=== PATIENT | female | born 1960 | race Caucasian/White ===

== ENCOUNTER 2017-12-17 15:15 | Emergency (ER) | payer OTHER ==
[~2017-12-17] VITALS: Ht 167.6 cm; Wt 68.0 kg
[2017-12-17 16:10] LABS: ABSOLUTE NEUTROPHILS 3.6 thou/uL (1.4-8.2); BASOPHILS 0.8 % (0.0-2.0); EOSINOPHILS 3.3 % (0.0-3.0); HEMATOCRIT 29.8 % (37.0-47.0); HEMOGLOBIN 9.4 gm/dL (12.0-15.0); LYMPHOCYTES 25.2 % (24.0-44.0); MCH 24.2 pg (26.0-34.0); MCHC 31.6 g/dL (28.0-37.0); MCV 76.5 fL (80.0-100.0); MONOCYTES 8.3 % (1.0-8.0); PLATELET COUNT 267 thou/uL (150-400); POLYS 62.4 % (36.0-66.0); RDW 17.2 % (10.5-14.5); WBC 5.8 thou/uL (4.0-11.0)
[2017-12-17 16:21] LABS: CALCIUM 9.3 mg/dL (8.5-10.1); CREATININE 1.1 mg/dL (0.6-1.0); POTASSIUM 3.2 mmol/L (3.5-5.1)
[2017-12-17] MEDS ORDERED: REGLAN 10 MG TA10 MG PO (16:35)
[2017-12-17] MEDS ORDERED: PHENERGAN 25 MG25 M1 PO (17:00)
[2017-12-17 17:50] VITALS: BP 123/69
== END 2017-12-17 17:51 | disposition home or self-care (01) ==
LOC: ER 15:15
PROVIDERS: Physician Assistant
DX: E87.6 Hypokalemia (principal); R51 Headache

== ENCOUNTER 2017-12-22 12:01 | Emergency (ER) | payer OTHER ==
[~2017-12-22] VITALS: Ht 170.2 cm; Wt 69.0 kg
[~2017-12-22 12:01] MED LIST: PHENERGAN 25 MG25 M1 PO; REGLAN 10 MG TA10 MG PO
[2017-12-22 13:23] LABS: URINE BILIRUBIN NEGATIVE (Negative); URINE BLOOD 1+ (Negative); URINE CLARITY CLEAR; URINE COLOR YELLOW; URINE GLUCOSE-RANDOM* NEGATIVE (Negative); URINE KETONES NEGATIVE (Negative); URINE LEUKOCYTES-REFLEX NEGATIVE (Negative); URINE NITRITE-REFLEX NEGATIVE (Negative); URINE PROTEIN (DIPSTICK) NEGATIVE (Negative); URINE UROBILINOGEN 0.2 E.U./dl (0.2-1.0)
[2017-12-22 13:32] LABS: ABSOLUTE NEUTROPHILS 2.7 thou/uL (1.4-8.2); BASOPHILS 1.1 % (0.0-2.0); EOSINOPHILS 5.2 % (0.0-3.0); HEMOGLOBIN 10.3 gm/dL (12.0-15.0); LYMPHOCYTES 31.6 % (24.0-44.0); MCH 24.2 pg (26.0-34.0); MCHC 32.2 g/dL (28.0-37.0); MCV 75.1 fL (80.0-100.0); PLATELET COUNT 301 thou/uL (150-400); POLYS 51.1 % (36.0-66.0); RBC 4.26 mil/uL (4.20-5.00); RDW 17.1 % (10.5-14.5); WBC 5.2 thou/uL (4.0-11.0)
[2017-12-22 13:33] LABS: CASTS None Seen /LPF (None Seen); CRYSTALS None Seen /LPF (None Seen); SQUAMOUS 4-10 Moderate /LPF (0-3)
[2017-12-22 13:34] LABS: BACTERIA-REFLEX 1-9 Few /HPF (None Seen); URINE RBC 3-10 Few /HPF (0-2); URINE WBC-REFLEX 0-5 Rare /HPF (0-5)
[2017-12-22 13:39] LABS: CALCIUM 9.6 mg/dL (8.5-10.1); CREATININE 1.2 mg/dL (0.6-1.0); POTASSIUM 4.3 mmol/L (3.5-5.1)
[2017-12-22 13:46] LABS: ALBUMIN 3.7 g/dL (3.4-5.0); TOTAL BILIRUBIN 0.2 mg/dL (<0.1-1.0); TOTAL PROTEIN 7.2 g/dL (6.4-8.2)
[2017-12-22] MEDS ORDERED: PRILOSEC 20 MG20 MG PO (15:07)
[2017-12-22 15:53] VITALS: BP 124/75
== END 2017-12-22 15:54 | disposition home or self-care (01) ==
LOC: ER 12:01
PROVIDERS: Nurse Practitioner Family
DX: R10.13 Epigastric pain (principal); Z59.0 Homelessness; Z85.01 Personal history of malignant neoplasm of esophagus

== ENCOUNTER 2018-05-29 10:13 | Emergency (ER) | payer OTHER ==
[~2018-05-29] VITALS: Ht 167.6 cm; Wt 63.5 kg
[~2018-05-29 10:13] MED LIST changes: +PRILOSEC 20 MG20 MG PO
[2018-05-29 10:58] LABS: ABSOLUTE NEUTROPHILS 4.3 thou/uL (1.4-8.2); BASOPHILS 0.4 % (0.0-2.0); EOSINOPHILS 3.9 % (0.0-3.0); HEMATOCRIT 38.2 % (37.0-47.0); HEMOGLOBIN 12.5 gm/dL (12.0-15.0); LYMPHOCYTES 17.9 % (24.0-44.0); MCH 24.9 pg (26.0-34.0); MCHC 32.6 g/dL (28.0-37.0); MCV 76.2 fL (80.0-100.0); MONOCYTES 7.3 % (1.0-8.0); PLATELET COUNT 358 thou/uL (150-400); POLYS 70.5 % (36.0-66.0); RBC 5.01 mil/uL (4.20-5.00); RDW 19.2 % (10.5-14.5); WBC 6.1 thou/uL (4.0-11.0)
[2018-05-29 11:10] LABS: ANION GAP 16 mmol/L (7-16); BUN 19 mg/dL (7-18); CHLORIDE 104 mmol/L (98-107); CO2 20 mmol/L (21-32); CREATININE 1.6 mg/dL (0.6-1.0); POTASSIUM 3.7 mmol/L (3.5-5.1); SODIUM 140 mmol/L (136-145)
[2018-05-29 11:11] LABS: APTT 26.5 Seconds (24.5-32.8); GLUCOSE 125 mg/dL (74-106); PROTIME 10.1 Seconds (9.3-11.4)
[2018-05-29 11:17] LABS: ALBUMIN 4.3 g/dL (3.4-5.0); DIRECT BILIRUBIN < 0.1 mg/dL (<0.1-0.3); LIPASE 100 U/L (73-393); SGOT 30 U/L (15-37); SGPT 43 U/L (30-65); TOTAL BILIRUBIN 0.3 mg/dL (<0.1-1.0); TOTAL PROTEIN 8.5 g/dL (6.4-8.2)
[2018-05-29] MEDS ORDERED: CLONAZEPAM 1 MG1 M1 PO (11:21)
[2018-05-29] MEDS ORDERED: FLEXERIL PO (11:21)
[2018-05-29 11:44] LABS: ANISOCYTOSIS 1+; PLATELET ESTIMATE NORMAL
== END 2018-05-29 12:58 | disposition home or self-care (01) ==
LOC: ER 10:13
PROVIDERS: Nurse Practitioner
DX: R11.2 Nausea with vomiting, unspecified (principal); R19.7 Diarrhea, unspecified; E86.0 Dehydration

== ENCOUNTER 2018-06-12 22:48 | Inpatient (IN) | payer OTHER ==
[~2018-06-12] VITALS: Ht 167.6 cm; Wt 67.6 kg
--- NOTE | ~2018-06-12 | EKG ---
[address] [place] [address] ELECTROCARDIOGRAM REPORT Name: STEPHY MINAYA Room #: 212-P ADM IN M.R.#: [id number] Admission: 06/13/18 Attend Phys: Herber Goldstein MD Discharge: Date of : 64 Report #: [id number] THIS REPORT FOR: //name// [facility] ED Test Date: 2018-06-12 Test Time: 23:27:06 Pat Name: STEPHY MINAYA Department: Room: 212 Gender: F Cv Tech: isrrael : 1960 Requested By: Ioana Moy Order Number: [id number] MD: Yannick Stallings Measurements Intervals [place] Rate: 82 P: 71 OR: 149 QRS: 60 QRSD: 106 T: 50 QT: 403 QTc: 471 Interpretive Statements Sinus rhythm RSR' in V1 or V2, probably normal variant No previous ECG available for comparison Electronically Signed On 06-13-2018 8:47:03 [employer] by Yannick Stallings [email or web address] <ELECTRONICALLY SIGNED> By: Yannick Stallings MD, [facility] 06/13/18 0847 2327 232 Yannick Stallings MD, FACC /EPI
--- NOTE | ~2018-06-12 | EKG ---
[address] [place] [address] ELECTROCARDIOGRAM REPORT Name: STEPHY MINAYA Room #: 212-P ADM IN M.R.#: [id number] Admission: 06/13/18 Attend Phys: Herber Goldstein MD Discharge: Date of : 64 Report #: [id number] THIS REPORT FOR: //name// [facility] Test Date: 2018-06-13 Test Time: 07:38:46 Pat Name: STEPHY MINAYA Department: Room: [facility] Gender: F Insurance Verifier: MICHELE : 1960 Requested By: Gela Rao Order Number: [id number] MD: Yannick Stallings Measurements Intervals [place] Rate: 77 P: 72 CT: 148 QRS: 53 QRSD: 103 T: 47 QT: 422 QTc: 478 Interpretive Statements Sinus rhythm RSR' in V1 or V2, probably normal variant No previous ECG available for comparison Electronically Signed On 06-13-2018 8:49:37 [employer] by Yannick Stallings [email or web address] <ELECTRONICALLY SIGNED> By: Yannick Stlalings MD, [facility] 06/13/18 0849 0738 0738 Yannick Stallings MD, FACC /EPI
--- NOTE | ~2018-06-12 | EXE ---
[facility] [place] [address] STRESS ECHOCARDIOGRAM Name: STEPHY MINAYA Room #: 212-P ADM IN M.R.#: [id number] Admission: 06/13/18 Attend Phys: Herber Goldstein MD Discharge: Date of : 64 Date of Service: 06/13/18 1146 Report #: [id number] THIS REPORT FOR: //name// APPROVED REPORT Study performed: 06/13/2018 09:24:06 Exam: Stress Echocardiogram Indication: Chest Pain, Nausea, Dyspnea Patient Location: In-Patient Stress Nurse: Theresa Isidro RN Room #: 212 Status: routine Ht: 5 ft 6 in HR: 72 bpm BP: 146/80 mmHg Rhythm: NSR Medical History Medical History: Smoking Procedure The patient underwent an Exercise Stress Test using the Blair Protocol. Blood pressure, heart rate, and EKG were monitored. An Echocardiogram was performed by medical technician in four stages in quad fashion. At peak stress, four selected images were obtained and placed side by side with resting images for comparison. Stress Test Details Stress Test: Exercise stress testing was performed using a Blair protocol. HR Resting HR: 72 bpm Max Heart Rate (APMHR): 165 bpm Max HR Achieved: 150 bpm Target HR (85% APMHR): 140 bpm % of APMHR: 90 Recovery HR: 96 bpm HR response to stress: Normal HR response to stress BP Resting BP: 146/80 mmHg Max BP: 160/70 mmHg Recovery BP: 132/70 mmHg BP response to stress: Normal blood pressure response to stress. ECG [facility] [address] [place] [address] STRESS ECHOCARDIOGRAM Name: STEPHY MINAYA Room #: 212-P [facility] IN M.R.#: [id number] Admission: 06/13/18 Attend Phys: Herber Goldstein MD Discharge: Date of : 64 Date of Service: 06/13/18 1146 Report #: [id number] Resting ECG: Sinus Rhythm Stress ECG: Sinus Rhythm ST Change: Normal Maximum ST Deviation: 0 mm Arrhythmia: Occasional PVC's Recovery ECG: Sinus Rhythm Recovery ST Change: Normal Recovery ST Deviation: 0 mm Recovery Arrhythmia: None Clinical Reason for Termination: Maximal effort Exercise duration: 9 min 08 sec Highest Stage Achieved: Stage 3: 3.4 mph at 14% grade. Exercise capacity: 10.10 METs Overall Exercise Capacity for Age: Normal Angina Score: None Stress ECG Conclusion ECG: Non-ischemic Clinical: Non-ischemic Montgomery Treadmill Score is 9.0 which is Low risk. Pre-Stress Echo The resting Echocardiogram showed normal left ventricular contractility with an estimated Ejection Fraction of about >55%. Normal wall motion in all segments on baseline images. Post-Stress Echo The stress Echocardiogram showed normal left ventricular contractility with an estimated Ejection Fraction of about 60-65%. Normal augmentation of wall motion in all segments on post stress images. Clinical No clinical or ECG evidence for ischemia. Conclusion Clinical Response: Non-ischemic Exercise Capacity: Average Stress ECG Response: Non-ischemic Stress Echo Images: Non-ischemic The left ventricle is normal in size and wall thickness in both the rest and stress images. Normal stress echocardiogram with maximal exercise stress. [facility] [address] [place] [address] STRESS ECHOCARDIOGRAM Name: STEPHY MINAYA Room #: 212-P [facility] IN M.R.#: [id number] Admission: 06/13/18 Attend Phys: Herber Goldstein MD Discharge: Date of : 64 Date of Service: 06/13/18 1146 Report #: [id number] Other Information Study Quality: Good <Conclusion> The left ventricle is normal in size and wall thickness in both the rest and stress images. Normal stress echocardiogram with maximal exercise stress. <ELECTRONICALLY SIGNED> By: Yannick Stallings MD, FACC 06/13/18 114 45 45 Yannick Stallings MD, FACC /INF
[~2018-06-12 22:48] MED LIST changes: +CLONAZEPAM 1 MG1 M1 PO; +FLEXERIL PO
[2018-06-12 22:57] VITALS: BP 195/60
[2018-06-12 23:11] LABS: ABSOLUTE NEUTROPHILS 4.9 thou/uL (1.4-8.2); BASOPHILS 0.8 % (0.0-2.0); EOSINOPHILS 6.6 % (0.0-3.0); HEMATOCRIT 32.8 % (37.0-47.0); HEMOGLOBIN 10.6 gm/dL (12.0-15.0); LYMPHOCYTES 22.8 % (24.0-44.0); MCH 24.4 pg (26.0-34.0); MCHC 32.3 g/dL (28.0-37.0); MCV 75.7 fL (80.0-100.0); MONOCYTES 8.7 % (1.0-8.0); PLATELET COUNT 386 thou/uL (150-400); POLYS 61.1 % (36.0-66.0); RBC 4.34 mil/uL (4.20-5.00)
[2018-06-12 23:27] LABS: ALBUMIN 3.9 g/dL (3.4-5.0); BUN 22 mg/dL (7-18); CALCIUM 9.5 mg/dL (8.5-10.1); CO2 24 mmol/L (21-32); CREATININE 1.1 mg/dL (0.6-1.0); GLUCOSE 106 mg/dL (74-106); SGOT 14 U/L (15-37); SGPT 17 U/L (30-65); TOTAL BILIRUBIN 0.2 mg/dL (<0.1-1.0); TOTAL PROTEIN 7.3 g/dL (6.4-8.2); TROPONIN-I <0.06 ng/mL (<0.06)
[2018-06-12 23:32] LABS: ANION GAP 8 mmol/L (7-16); CHLORIDE 105 mmol/L (98-107); POTASSIUM 3.6 mmol/L (3.5-5.1); SODIUM 137 mmol/L (136-145)
[2018-06-13] VITALS (10 sets, daily range): BP systolic 130–153; BP diastolic 66–82
[2018-06-13 05:22] LABS: ANION GAP 10 mmol/L (7-16); BUN 19 mg/dL (7-18); CALCIUM 8.3 mg/dL (8.5-10.1); CHLORIDE 108 mmol/L (98-107); CHOLESTEROL 157 mg/dL (<200); CO2 23 mmol/L (21-32); GLUCOSE 101 mg/dL (74-106); HDL CHOLESTEROL 50 mg/dL (>40); LDL CHOLESTEROL 92 mg/dL (<100); POTASSIUM 3.6 mmol/L (3.5-5.1); SODIUM 141 mmol/L (136-145); TC:HDL 3.1 Ratio (Not establshd); TRIGLYCERIDE 78 mg/dL (<150); TROPONIN-I <0.06 ng/mL (<0.06); VLDL 16 mg/dL (<40)
[2018-06-13 05:25] LABS: SERUM ASSESSMENT Clear
[2018-06-14 05:07] LABS: GLYCOHEMOGLOBIN (HGB A1C) 5.4 % (4.8-5.6)
== END 2018-06-13 18:00 | disposition home or self-care (01) | DRG 313 ==
LOC: ER 22:48 → EROBS 06-13 01:32 → 2N 06-13 02:31
PROVIDERS: Nurse Practitioner Family; Physician Assistant
DX: R07.89 Other chest pain (principal); F43.10 Post-traumatic stress disorder, unspecified; F31.9 Bipolar disorder, unspecified; F41.0 Panic disorder [episodic paroxysmal anxiety]; K21.9 Gastro-esophageal reflux disease without esophagitis; F17.210 Nicotine dependence, cigarettes, uncomplicated; Z98.891 History of uterine scar from previous surgery; Z59.0 Homelessness; Z85.01 Personal history of malignant neoplasm of esophagus; Z90.722 Acquired absence of ovaries, bilateral; Z82.49 Family history of ischemic heart disease and other diseases of the circulatory system; Z82.3 Family history of stroke; Z83.71 Family history of colonic polyps; Z71.6 Tobacco abuse counseling
CPT/HCPCS: 10081

== ENCOUNTER 2018-12-10 07:52 | Emergency (ER) | payer OTHER ==
[~2018-12-10] VITALS: Ht 167.6 cm; Wt 66.2 kg
[2018-12-10 08:09] LABS: URINE BILIRUBIN NEGATIVE (Negative); URINE BLOOD 3+ (Negative); URINE CLARITY SL CLOUDY; URINE COLOR YELLOW; URINE GLUCOSE-RANDOM* NEGATIVE (Negative); URINE KETONES NEGATIVE (Negative); URINE NITRITE-REFLEX NEGATIVE (Negative); URINE PROTEIN (DIPSTICK) NEGATIVE (Negative); URINE SPECIFIC GRAVITY 1.025 (1.005-1.035); URINE UROBILINOGEN 0.2 E.U./dl (0.2-1.0)
[2018-12-10 08:13] LABS: URINE LEUKOCYTES-REFLEX 2+ (Negative)
[2018-12-10 08:29] LABS: CASTS None Seen /LPF (None Seen); MUCUS 0-3 Light strn/LPF (None Seen); SQUAMOUS >10 Many /LPF (0-3)
[2018-12-10 08:30] LABS: BACTERIA-REFLEX 1-9 Few /HPF (None Seen); CRYSTALS None Seen /LPF (None Seen); URINE RBC >20 Many /HPF (0-2); URINE WBC-REFLEX >25 Many /HPF (0-5)
[2018-12-10 08:49] LABS: AMP/METHAMP Negative (Negative); BARBITURATES Negative (Negative); BENZODIAZEPINES Negative (Negative); COCAINE Negative (Negative); METHADONE Negative (Negative); OPIATES Negative (Negative); PCP Negative (Negative)
[2018-12-10 08:54] LABS: BASOPHILS 1.2 % (0.0-2.0); EOSINOPHILS 9.1 % (0.0-3.0); HEMATOCRIT 33.1 % (37.0-47.0); HEMOGLOBIN 10.4 gm/dL (12.0-15.0); LYMPHOCYTES 24.3 % (24.0-44.0); MCH 23.8 pg (26.0-34.0); MCHC 31.6 g/dL (28.0-37.0); MCV 75.3 fL (80.0-100.0); MONOCYTES 6.9 % (1.0-8.0); POLYS 58.5 % (36.0-66.0); RBC 4.39 mil/uL (4.20-5.00); RDW 22.8 % (10.5-14.5); WBC 9.3 thou/uL (4.0-11.0)
[2018-12-10 09:06] LABS: ANION GAP 12 mmol/L (7-16); BUN 25 mg/dL (7-18); CALCIUM 9.3 mg/dL (8.5-10.1); CHLORIDE 107 mmol/L (98-107); CO2 22 mmol/L (21-32); CREATININE 0.9 mg/dL (0.6-1.0); GLUCOSE 82 mg/dL (74-106); POTASSIUM 4.7 mmol/L (3.5-5.1); SODIUM 141 mmol/L (136-145)
[2018-12-10 09:13] LABS: ALBUMIN 3.7 g/dL (3.4-5.0); DIRECT BILIRUBIN < 0.1 mg/dL (<0.1-0.3); LIPASE 247 U/L (73-393); SGOT 29 U/L (15-37); SGPT 23 U/L (30-65); TOTAL BILIRUBIN 0.3 mg/dL (<0.1-1.0); TOTAL PROTEIN 7.2 g/dL (6.4-8.2)
[2018-12-10 09:30] LABS: ANISOCYTOSIS 2+; MICROCYTES 2+; PLATELET COUNT 351 thou/uL (150-400); PLATELET ESTIMATE NORMAL
[2018-12-10] MEDS ORDERED: IBUPROFEN 600600 M1 PO (10:23)
[2018-12-10] MEDS ORDERED: ULTRAM 50MG TAB50 MG PO (10:23)
[2018-12-10] MEDS ORDERED: NORFLEX100 MG PO (10:23)
[2018-12-10 10:43] LABS: URINE BILIRUBIN NEGATIVE (Negative); URINE BLOOD 3+ (Negative); URINE CLARITY CLEAR; URINE COLOR YELLOW; URINE GLUCOSE-RANDOM* NEGATIVE (Negative); URINE KETONES NEGATIVE (Negative); URINE LEUKOCYTES-REFLEX NEGATIVE (Negative); URINE NITRITE-REFLEX NEGATIVE (Negative); URINE PROTEIN (DIPSTICK) NEGATIVE (Negative); URINE UROBILINOGEN 0.2 E.U./dl (0.2-1.0)
[2018-12-10 11:13] LABS: CASTS None Seen /LPF (None Seen); SQUAMOUS 0-3 Few /LPF (0-3); URINE RBC 0-2 Rare /HPF (0-2)
[2018-12-10 11:14] LABS: BACTERIA-REFLEX None Seen /HPF (None Seen); CRYSTALS None Seen /LPF (None Seen); URINE WBC-REFLEX None Seen /HPF (0-5)
[2018-12-10] MEDS ORDERED: NORCO 5-325 TA1 EACH PO (11:42)
[2018-12-10] MEDS ORDERED: SENNA-DOCUSATE1 EAC1 PO (11:42)
[2018-12-10 12:44] VITALS: BP 152/95
[2018-12-10] MEDS ORDERED: PHENERGAN 25 MG25 M1 PO (12:44)
== END 2018-12-10 12:46 | disposition home or self-care (01) ==
LOC: ER 07:52
PROVIDERS: Emergency Medicine
DX: R10.9 Unspecified abdominal pain (principal); Z98.51 Tubal ligation status; Z98.890 Other specified postprocedural states; Z85.01 Personal history of malignant neoplasm of esophagus; Z87.442 Personal history of urinary calculi

== ENCOUNTER 2018-12-27 17:09 | Emergency (ER) | payer OTHER ==
[~2018-12-27] VITALS: Ht 167.6 cm; Wt 59.9 kg
[~2018-12-27 17:09] MED LIST changes: +IBUPROFEN 600600 M1 PO; +NORCO 5-325 TA1 EACH PO; +NORFLEX100 MG PO; +SENNA-DOCUSATE1 EAC1 PO; +ULTRAM 50MG TAB50 MG PO
[2018-12-27 17:37] LABS: ABSOLUTE NEUTROPHILS 3.3 thou/uL (1.4-8.2); BASOPHILS 0.8 % (0.0-2.0); EOSINOPHILS 8.2 % (0.0-3.0); HEMOGLOBIN 12.3 gm/dL (12.0-15.0); MCH 24.2 pg (26.0-34.0); MCHC 32.3 g/dL (28.0-37.0); MCV 74.7 fL (80.0-100.0); MONOCYTES 7.3 % (1.0-8.0); PLATELET COUNT 332 thou/uL (150-400); POLYS 53.7 % (36.0-66.0); RBC 5.09 mil/uL (4.20-5.00); WBC 6.2 thou/uL (4.0-11.0)
[2018-12-27 17:45] LABS: CALCIUM 9.6 mg/dL (8.5-10.1); CREATININE 1.1 mg/dL (0.6-1.0); POTASSIUM 4.2 mmol/L (3.5-5.1)
[2018-12-27 17:51] LABS: TOTAL BILIRUBIN 0.3 mg/dL (<0.1-1.0); TOTAL PROTEIN 7.9 g/dL (6.4-8.2)
[2018-12-27 18:05] LABS: URINE BILIRUBIN NEGATIVE (Negative); URINE BLOOD TRACE (Negative); URINE CLARITY CLEAR; URINE COLOR YELLOW; URINE GLUCOSE-RANDOM* NEGATIVE (Negative); URINE KETONES NEGATIVE (Negative); URINE LEUKOCYTES-REFLEX TRACE (Negative); URINE NITRITE-REFLEX NEGATIVE (Negative); URINE PROTEIN (DIPSTICK) NEGATIVE (Negative); URINE SPECIFIC GRAVITY 1.025 (1.005-1.035); URINE UROBILINOGEN 0.2 E.U./dl (0.2-1.0)
[2018-12-27] MEDS ORDERED: NORCO 5-325 TA1 EAC1 PO (20:00)
[2018-12-27 20:21] VITALS: BP 157/90
== END 2018-12-27 20:22 | disposition home or self-care (01) ==
LOC: ER 17:09
PROVIDERS: Emergency Medicine
DX: R10.31 Right lower quadrant pain (principal); F31.9 Bipolar disorder, unspecified; F41.0 Panic disorder [episodic paroxysmal anxiety]; F17.210 Nicotine dependence, cigarettes, uncomplicated; Z98.890 Other specified postprocedural states; Z85.01 Personal history of malignant neoplasm of esophagus

== ENCOUNTER 2019-01-18 00:46 | Emergency (ER) | payer OTHER ==
[~2019-01-18] VITALS: Ht 167.6 cm; Wt 59.9 kg
[~2019-01-18 00:46] MED LIST changes: +NORCO 5-325 TA1 EAC1 PO
[2019-01-18] MEDS ORDERED: KLONOPIN1 MG PO (01:04)
[2019-01-18 01:43] LABS: URINE BILIRUBIN NEGATIVE (Negative); URINE BLOOD TRACE (Negative); URINE CLARITY CLEAR; URINE COLOR YELLOW; URINE GLUCOSE-RANDOM* NEGATIVE (Negative); URINE KETONES NEGATIVE (Negative); URINE NITRITE-REFLEX NEGATIVE (Negative); URINE PROTEIN (DIPSTICK) TRACE (Negative); URINE SPECIFIC GRAVITY >= 1.030 (1.005-1.035); URINE UROBILINOGEN 0.2 E.U./dl (0.2-1.0)
[2019-01-18 01:45] LABS: URINE LEUKOCYTES-REFLEX 1+ (Negative)
[2019-01-18 01:47] LABS: ABSOLUTE NEUTROPHILS 2.5 thou/uL (1.4-8.2); BASOPHILS 0.7 % (0.0-2.0); EOSINOPHILS 4.8 % (0.0-3.0); HEMATOCRIT 31.6 % (37.0-47.0); HEMOGLOBIN 10.3 gm/dL (12.0-15.0); LYMPHOCYTES 36.9 % (24.0-44.0); MCH 24.2 pg (26.0-34.0); MCHC 32.7 g/dL (28.0-37.0); MCV 74.2 fL (80.0-100.0); MONOCYTES 9.5 % (1.0-8.0); PLATELET COUNT 325 thou/uL (150-400); POLYS 48.1 % (36.0-66.0); RBC 4.26 mil/uL (4.20-5.00); RDW 19.7 % (10.5-14.5); WBC 5.3 thou/uL (4.0-11.0)
[2019-01-18 01:55] LABS: SQUAMOUS 4-10 Moderate /LPF (0-3); URINE RBC 0-2 Rare /HPF (0-2)
[2019-01-18 01:56] LABS: ANION GAP 10 mmol/L (7-16); BUN 26 mg/dL (7-18); CALCIUM 9.1 mg/dL (8.5-10.1); CHLORIDE 108 mmol/L (98-107); CO2 25 mmol/L (21-32); CREATININE 1.1 mg/dL (0.6-1.0); GLUCOSE 101 mg/dL (74-106); POTASSIUM 3.9 mmol/L (3.5-5.1); SODIUM 143 mmol/L (136-145)
[2019-01-18 01:56] LABS: CALCIUM OXALATE 4-10 Moderate /LPF (None Seen); CASTS None Seen /LPF (None Seen); MUCUS 4-6 Moderate strn/LPF (None Seen)
[2019-01-18 02:07] LABS: ALBUMIN 3.4 g/dL (3.4-5.0); MAGNESIUM 1.9 mg/dL (1.8-2.4); SGOT 17 U/L (15-37); SGPT 18 U/L (30-65); TOTAL BILIRUBIN 0.2 mg/dL (<0.1-1.0); TOTAL PROTEIN 6.6 g/dL (6.4-8.2); TROPONIN-I <0.06 ng/mL (<0.06)
[2019-01-18] MEDS ORDERED: ATIVAN0.5 MG PO (02:33)
[2019-01-18] MEDS ORDERED: KEFLEX500 M1 PO (02:33)
[2019-01-18 02:43] VITALS: BP 128/77
--- NOTE | 2019-01-18 07:59 | EKG ---
[place] [address] [facility] [place] [address] ELECTROCARDIOGRAM REPORT Name: STEPHY MINAYA Room #: DEP KATHE Starr#: [id number] ������������������ Admission: 01/18/19 ������������������ Attend Phys: Discharge: 01/18/19 ������������������ Date of : 64 Report #: [id number] ����������������������������������������������������������������� [id number] THIS REPORT FOR: //name// [facility] ED Test Date: 2019-01-18 Test Time: 01:33:13 Pat Name: STEPHY MINAYA Department: Room: Gender: F Manager [employer]: MATILDE : 1960 Requested By: Clayton Morales Order Number: [id number] MD: Yannick Stallings Measurements Intervals [place] Rate: 77 P: 63 MA: 142 QRS: 48 QRSD: 107 T: 48 QT: 397 QTc: 450 Interpretive Statements Sinus rhythm Right ventricular conduction delay Compared to ECG 06/13/2018 07:38:46 No significant changes Electronically Signed On 01-18-2019 7:59:47 CDT by Yannick Stallings [email or web address] ��������������������������������������������� <ELECTRONICALLY SIGNED> ���������������������������������������� By: Yannick Stallings MD, [facility] ��������������������������������������������� 01/18/19 0759 0133 0133 Yannick Stallings MD, FACC /EPI
== END 2019-01-18 02:53 | disposition home or self-care (01) ==
LOC: ER 00:46
PROVIDERS: Emergency Medicine
DX: G25.81 Restless legs syndrome (principal); D64.9 Anemia, unspecified; N39.0 Urinary tract infection, site not specified; C15.9 Malignant neoplasm of esophagus, unspecified; F17.210 Nicotine dependence, cigarettes, uncomplicated; F31.9 Bipolar disorder, unspecified; F41.0 Panic disorder [episodic paroxysmal anxiety]; Z98.890 Other specified postprocedural states

== ENCOUNTER 2019-08-16 11:53 | Emergency (ER) | payer OTHER ==
[~2019-08-16] VITALS: Ht 167.6 cm; Wt 65.8 kg
[~2019-08-16 11:53] MED LIST changes: +ATIVAN0.5 MG PO; +KEFLEX500 M1 PO; +KLONOPIN1 MG PO
[2019-08-16 11:54] VITALS: BP 152/97
[2019-08-16] MEDS ORDERED: AMOXICILLIN 50500 MG PO ×2 (12:13→12:26)
[2019-08-16] MEDS ORDERED: NAPROSYN500 MG PO ×2 (12:13→12:26)
== END 2019-08-16 12:39 | disposition home or self-care (01) ==
LOC: ER 11:53
DX: K02.9 Dental caries, unspecified (principal); F31.9 Bipolar disorder, unspecified; F17.210 Nicotine dependence, cigarettes, uncomplicated; Z85.01 Personal history of malignant neoplasm of esophagus

== ENCOUNTER 2020-01-21 04:11 | Emergency (ER) | payer OTHER ==
[~2020-01-21] VITALS: Ht 170.2 cm; Wt 69.0 kg
[~2020-01-21 04:11] MED LIST changes: +AMOXICILLIN 50500 MG PO; +NAPROSYN500 MG PO
[2020-01-21 05:39] LABS: CALCIUM 9.1 mg/dL (8.5-10.1); CREATININE 1.1 mg/dL (0.6-1.0); POTASSIUM 4.6 mmol/L (3.5-5.1)
[2020-01-21 06:39] LABS: ABSOLUTE NEUTROPHILS 2.5 thou/uL (1.4-8.2); BASOPHILS 0.6 % (0.0-2.0); EOSINOPHILS 3.7 % (0.0-3.0); HEMATOCRIT 37.6 % (37.0-47.0); HEMOGLOBIN 12.6 gm/dL (12.0-15.0); LYMPHOCYTES 32.8 % (24.0-44.0); MCH 31.5 pg (26.0-34.0); MCHC 33.6 g/dL (28.0-37.0); MCV 93.9 fL (80.0-100.0); PLATELET COUNT 216 thou/uL (150-400); POLYS 53.9 % (36.0-66.0); WBC 4.6 thou/uL (4.0-11.0)
[2020-01-21 07:15] VITALS: BP 145/85
[2020-01-21] MEDS ORDERED: IBUPROFEN 600600 M1 PO (07:29)
[2020-01-21] MEDS ORDERED: ZOFRAN ODT4 MG PO (07:29)
--- NOTE | 2020-01-21 08:14 | EKG ---
[facility] [place] [address] ELECTROCARDIOGRAM REPORT Name: STEPHY MINAYA Room #: [facility]..#: [id number] Admission: 01/21/20 Attend Phys: Discharge: Date of : 64 Report #: [id number] THIS REPORT FOR: cc: Bonilla Moy MS, Gary MS Lundgren,Yannick Gan MD [facility] ~ THIS REPORT FOR: //name// [facility] ED Test Date: 2020-01-21 Test Time: 05:16:48 Pat Name: STEPHY MINAYA Department: Room: Gender: F [employer] Sorting Supervisor: robson : 1960 Requested By: Joe Zaman Order Number: [id number] MD: Yannick Stalilngs Measurements Intervals [place] Rate: 77 P: 58 [place]: 156 QRS: 45 QRSD: 94 T: 37 QT: 400 QTc: 453 Interpretive Statements Sinus rhythm with occasional premature ventricular complexes Probable left atrial enlargement RSR' in V1 or V2, probably normal variant Compared to ECG 01/18/2019 01:33:13 Premature ventricular complexes are now present Electronically Signed On 01-21-2020 8:13:49 CDT by Yannick Stallings [email or web address] <ELECTRONICALLY SIGNED> By: Yannick Stallings MD, FACC 01/21/20 0813 5 5 Yannick Stallings MD, [facility] /EPI
[2020-01-21] MEDS ORDERED: ALPRAZOLAM1 MG PO (09:21)
[2020-01-21] MEDS ORDERED: RESTORIL30 MG PO (09:22)
== END 2020-01-21 08:05 | disposition home or self-care (01) ==
LOC: ER 04:11
PROVIDERS: Emergency Medicine
DX: G45.3 Amaurosis fugax (principal); F17.210 Nicotine dependence, cigarettes, uncomplicated; Z79.2 Long term (current) use of antibiotics; Z79.899 Other long term (current) drug therapy

== ENCOUNTER 2020-01-21 08:43 | Inpatient (IN) | payer OTHER ==
[~2020-01-21] VITALS: Ht 170.2 cm; Wt 68.9 kg
--- NOTE | ~2020-01-21 | HC ---
[facility] [place] [address] CONSULTATION Name: STEPHY MINAYA Room #: 216-P [facility] IN M.R.#: [id number] Admission: 01/21/20 Attend Phys: Tres Gonzalez MD Discharge: 01/21/20 Date of : 64 Report #: [id number] THIS REPORT FOR: cc: Bonilla Moy MS,Bonilla [place],Navi Esteban MD ~ CC: Bonilla Gonzalez DATE OF SERVICE: 01/21/2020 HISTORY OF PRESENT ILLNESS: This is a 59-year-old female patient who was evaluated by me because she said she started having episodes of loss of vision in the right eye, which started about 2 weeks ago. This episode will last just about a second. The last episode lasted about a minute. Spontaneously, they are not associated with any headache. She was in the hospital Emergency Room recently and she left [place] for these episodes. During that time, they did a CTA of the head and neck, which was basically unremarkable. REVIEW OF SYSTEMS: Positive for the fact that she has lost her job recently. She has other problems like dental pain. She says she is in the beginning stages of esophageal carcinoma. She has been admitted to this hospital what looks like posttraumatic stress disorder and panic attack. She denies any prior history of stroke. A 14-point review of system was otherwise noncontributory. PAST MEDICAL HISTORY: Negative for stroke. FAMILY HISTORY: Positive for strokes. SOCIAL HISTORY: She smokes. PHYSICAL EXAMINATION: She is alert, responsive, able to follow simple and complex command. Her speech looks to me intact, but she does not feel her speech is very good. Cranial nerve examinations appear mostly noncontributory. I could not have a good look at the patient's fundus. Strength, sensation, reflexes are difficult to check. She feels weak on the right side. She does not give a good effort. Position sense appeared to be intact. Cardiac examination is unremarkable. Blood pressure is 139/77, respirations 14, pulse is 75. She is moderately built individual. LABORATORY DATA: White count is 4.6. GFR is 51. Last TSH was normal. IMPRESSION: Difficult to tell in this patient. Her CT angio is totally unremarkable. Because of that other etiology except for amaurosis fugax need to be considered. She needs a full ophthalmology examination. I will order a sed rate. I will order an MRI also. Stress may be playing a role in this patient's [facility] [address] [place] [address] CONSULTATION Name: STEPHY MINAYA Room #: 216-P DIS IN M.R.#: [id number] Admission: 01/21/20 Attend Phys: Tres Gonzalez MD Discharge: 01/21/20 Date of : 64 Report #: [id number]. RECOMMENDATIONS: 1. I would recommend Ophthalmology consult. I talked to Dr. Gonzalez. I do not know if any account administrator comes here or not, but he is going to find out and see if that consult can be arranged and that is what my recommendation is. 2. I will get an MRI done. They told me MRI may not be available and let the patient know but we will see whenever it can be done. 3. I will order a sed rate. 4. We will await other workup, especially ophthalmology workup to see if there is any ophthalmology pathology. As mentioned above, stress also may be playing a role, but we will consider that. Thank you very much for allowing me to share in the management of this patient and we will follow this patient along with you. By: 1025 1153 Navi Beach MD /nt
[~2020-01-21 08:43] MED LIST changes: +ZOFRAN ODT4 MG PO
[2020-01-21 09:00] VITALS: BP 139/78
[2020-01-21] MEDS ORDERED: ALPRAZOLAM1 MG PO (09:21)
[2020-01-21] MEDS ORDERED: RESTORIL30 MG PO (09:22)
[2020-01-21 14:04] VITALS: BP 130/70
[2020-01-21 14:55] VITALS: BP 146/89
--- NOTE | 2020-01-21 16:54 | NUR ---
PT ARRIVED TO UNIT FROM ER. PT ALERT AND ORIENTED. VSS. C/O PAIN IN RIGHT EYE. WILLCONTACT PHYSICIAN FOR ADDITIONAL ORDERS. ADMISSION COMPLETE. TELE STRIP PRINTED AND DOCUMENTED. AFTER COMPLETING PT ADMISSION, THIS RN LEFT THE PATIENT'S ROOM AT 1630. UPON RETURNING AT 1647 PT AND HER DOG WERE NOT IN THE ROOM. TELEMETRY DEVICE WAS LEFT ON THE BED ALONG WITH PATIENT GOWN. PT DID NOT HAVE IV ACCESS, AND DID NOT RECEIVE ANY MEDICATIONS FROM THIS NURSE. SECURITY NOTIFIED. PHYSICIAN NOTIFIED.
--- NOTE | 2020-01-22 07:33 | NUR ---
PATIENT DISCHARGED BEFORE OCCUPATIONAL THERAPY EVALUATION WAS ADMINISTERED ORDERED.
--- NOTE | 2020-01-22 07:46 | NUR ---
ORDERS FOR EVAL AND TREAT HOWEVER Pt DISCHARGED FROM HOSPITAL PRIOR TO BEING SEEN
== END 2020-01-21 16:30 | disposition left against medical advice (07) | DRG 123 ==
LOC: ER 08:43 → EROBS 09:57 → 2N 14:45
PROVIDERS: ADMIT Internal Medicine; ATTEND Internal Medicine
DX: G45.3 Amaurosis fugax (principal); F31.9 Bipolar disorder, unspecified; Z53.29 Procedure and treatment not carried out because of patient's decision for other reasons; F17.210 Nicotine dependence, cigarettes, uncomplicated; F43.10 Post-traumatic stress disorder, unspecified; Z85.01 Personal history of malignant neoplasm of esophagus; X58.XXXA Exposure to other specified factors, initial encounter; Y93.89 Activity, other specified; Y92.89 Other specified places as the place of occurrence of the external cause; Y99.8 Other external cause status
CPT/HCPCS: 10194